=== PATIENT | male | born 1955 | race Caucasian/White ===

== ENCOUNTER → 2021-07-03 | Outpatient (CLI) | payer MEDICARE, OTHER | LOC: NM 06:59 | DX: C61 Malignant neoplasm of prostate (principal) | CPT/HCPCS: 36415; 78306; 82565; 84520; A9503; Q9967 ==

== ENCOUNTER → 2021-07-10 | Outpatient (CLI) | payer MEDICARE, OTHER | LOC: NM 07-03 08:10 → CT 09:38 | DX: C61 Malignant neoplasm of prostate (principal); K76.0 Fatty (change of) liver, not elsewhere classified | CPT/HCPCS: Q9967 ==